=== PATIENT | female | born 1930 ===

== ENCOUNTER 2017-09-16 07:07 | Outpatient (CLI) | payer OTHER | END 2017-09-16 07:45 | disposition home or self-care (01) | LOC: RAD 07:07 | DX: Z76.89 Persons encountering health services in other specified circumstances (principal) ==

== ENCOUNTER 2017-09-16 07:14 | Outpatient (CLI) | payer OTHER | END 2017-09-16 07:29 | disposition home or self-care (01) | LOC: EKG 07:14 | DX: I49.8 Other specified cardiac arrhythmias (principal) ==

== ENCOUNTER → 2017-09-16 | Outpatient (CLI) | payer OTHER ==
[~2017-09-16] MED LIST: AMLODIPINE BES2.5 MG PO; EXFORGE 10-1601 TAB PO; HYZAAR 100-121 UDTAB PO; LEVAQUIN500 MG PO; PREDNISOLONE5 MG PO; PROVENTIL0.5 ML/2.5 IH; SINGULAIR10 MG PO; SPIRONOLACTONE
== END | disposition home or self-care (01) ==
LOC: LAB 06:51
DX: D64.89 Other specified anemias (principal); D68.8 Other specified coagulation defects; N39.0 Urinary tract infection, site not specified; E88.89 Other specified metabolic disorders

== ENCOUNTER 2017-09-25 17:23 | Inpatient (IN) | payer OTHER ==
[~2017-09-25] VITALS: Ht 149.9 cm; Wt 66.2 kg
[2017-09-29] MEDS ORDERED: MAXIMUM DAILY1 EACH PO (09:28)
[2017-09-29] MEDS ORDERED: XANAX XR0.5 MG PO (09:28)
[2017-09-29] MEDS ORDERED: CALTRATE 600 +1 EACH PO (09:29)
[2017-09-29] MEDS ORDERED: IRON18 MG PO (09:29)
== END 2017-10-06 14:28 | DRG 470 ==
LOC: SURG 10-03 05:40 → O/R 10-03 05:40 → SURG 10-03 07:45
PROVIDERS: Orthopaedic Surgery
PROC: 0SRD0J9 Replacement of Left Knee Joint with Synthetic Substitute, Cemented, Open Approach (ICD-10-PCS; principal; 2017-10-03 07:00)
DX: M17.12 Unilateral primary osteoarthritis, left knee (principal); D62 Acute posthemorrhagic anemia